=== PATIENT | female | born 1950 | race Caucasian/White ===

== ENCOUNTER → 2018-09-15 | Day surgery (SDC) | payer MEDICARE, OTHER ==
[~2018-09-15] MED LIST: ALEN70TA3 PO; ASPI325T8 PO; ATEN50TA PO; IV RINGERS,LACTATED 1000ML 1,000 ML IV SCH; LISI-338 PO; OMEP20TA8 PO; PROPOFOL 20 ML IV ONE; SIMV40TA3 PO
[2018-09-15 09:03] VITALS: BP 132/62
--- NOTE | 2018-09-15 13:41 | HP ---
ADMIT DATE: 09/15/2018 REFERRING PHYSICIAN: Dr. Quique Caban. HISTORY OF PRESENT ILLNESS: This is a 68-year-old female with past medical history significant for hypercholesterolemia, hypertension, history of colonic polyps, is seen for surveillance colon exam. Bowel habits are regular with only occasional constipation, which is controlled with fiber supplements. There has been no melena and/or hematochezia. Last colonoscopy in 2013 did reveal polyps. Weight and appetite are stable. She is without additional complaints. PAST MEDICAL HISTORY: Hypertension, hyperlipidemia, osteoporosis, gastroesophageal reflux disease, colonic polyps. ALLERGIES: None. MEDICATIONS: Include Fosamax, aspirin, lisinopril, omeprazole and simvastatin. SOCIAL HISTORY: She is a social drinker, nonsmoker. FAMILY HISTORY: Significant for heart attack in her father. PAST SURGICAL HISTORY: Tubal ligation. REVIEW OF SYSTEMS: Per records. PHYSICAL EXAMINATION: GENERAL: A well-nourished, well-developed female who is alert, cooperative, in no acute distress. VITAL SIGNS: Temperature 98.6, pulse 101, respirations 18. HEENT: Reveals normocephalic head. Pupils and extraocular movements are not tested. Sclerae anicteric. NECK: Supple. LUNGS: Clear. CARDIOVASCULAR: Reveals S1, S2 without S3, S4 or appreciable murmur. ABDOMEN: Soft abdomen, normal bowel sounds without appreciable hepatosplenomegaly. EXTREMITIES: Reveal no cyanosis, clubbing or edema. IMPRESSION: Colonic polyps. Surveillance exam is recommended at this time. Risks and benefits of procedure have been discussed with the patient previously including risk of hemorrhage and perforation. She is willing to proceed at this time. SANTI SENA MD DR: ERASMO/sunny JOB#: [id number] / [id number] [facility] RECORDS, MEDICAL
== END ==
LOC: SURG 07:16
PROVIDERS: ATTEND Internal Medicine Gastroenterology
DX: Z12.11 Encounter for screening for malignant neoplasm of colon (principal); K63.89 Other specified diseases of intestine; K64.0 First degree hemorrhoids; I10 Essential (primary) hypertension; E78.5 Hyperlipidemia, unspecified; K21.9 Gastro-esophageal reflux disease without esophagitis; Z86.010 Personal history of colon polyps; Z72.89 Other problems related to lifestyle; Z98.51 Tubal ligation status
CPT/HCPCS: 45378; J2704

== ENCOUNTER 2019-10-14 22:48 | Emergency (ER) | payer MEDICARE, OTHER ==
[~2019-10-14] VITALS: Ht 152.4 cm; Wt 56.8 kg
[~2019-10-14 22:48] MED LIST changes: -IV RINGERS,LACTATED 1000ML 1,000 ML IV SCH; -PROPOFOL 20 ML IV ONE; +SIMV40TA18 PO; -SIMV40TA3 PO
[2019-10-15] MEDS ORDERED: METOCLOPRAMIDE HCL 10 MG/2 ML VIAL. IVP ONE (01:30)
[2019-10-15] MEDS ORDERED: DEXAMETHASONE SOD PHOS 4 MG/ML VIAL IVP ONE (01:30)
[2019-10-15] MEDS ORDERED: diphenhydrAMINE 50 MG/ML VIAL IVP ONE (01:30)
[2019-10-15] MEDS ORDERED: KETOROLAC 15 MG/ML VIAL. IVP ONE (01:30)
[2019-10-15] MEDS ORDERED: IV NORMAL SALINE 1000ML BAG 1,000 ML IV ONE (01:30)
--- NOTE | 2019-10-15 01:36 | RAD ---
Chest, PA and Lateral: Technique: PA and lateral views of the chest were obtained. History: Shortness of breath. Comparison: None. Findings: The heart and pulmonary vasculature appear within normal limits. The lungs are clear. The pleural margins are clear. Impression: No acute chest process is seen. Electronically signed by: Marlon Majano MD (10/15/2019 1:33 AM) [id number]
[2019-10-15 02:22] LABS: BASO # 0.1 x10^3/uL (0.0-0.2); BASO % 1 % (0-3); EOS # 0.1 x10^3/uL (0.0-0.7); EOS % 2 % (0-3); HEMOGLOBIN 13.5 g/dL (12.0-15.5); LYMPH # 3.1 x10^3/uL (1.0-4.8); LYMPH % 43 % (24-48); MEAN CORPUSCULAR HEMOGLOBIN 33 pg (25-35); MEAN CORPUSCULAR HGB CONC 35 g/dL (31-37); MEAN CORPUSCULAR VOLUME 95 fL (79-100); MONO # 0.6 x10^3/uL (0.0-1.1); MONO % 8 % (0-9); NEUT # 3.4 x10^3/uL (1.8-7.7); NEUT % 46 % (31-73); PLATELET COUNT 265 x10^3/uL (140-400); RED BLOOD COUNT 4.13 x10^6/uL (3.50-5.40); RED CELL DISTRIBUTION WIDTH 12.9 % (11.5-14.5); WHITE BLOOD COUNT 7.3 x10^3/uL (4.0-11.0)
--- NOTE | 2019-10-15 02:22 | PHYS DOC ---
Past Medical History Past Medical History: High Cholesterol, Hypertension Past Surgical History: Oophorectomy Smoking Status: Never Smoker Alcohol Use: Occasionally General Adult EDM: Chief Complaint: HEADACHE HPI: HPI: Patient is a 69 year old [f__sex] who presents with [] Review of Systems: Review of Systems: Constitutional: Denies fever or chills. [] Eyes: Denies change in visual acuity. [] HENT: Denies nasal congestion or sore throat. [] Respiratory: Denies cough or shortness of breath. [] Cardiovascular: Denies chest pain or edema. [] GI: Denies abdominal pain, nausea, vomiting, bloody stools or diarrhea. [] : Denies dysuria. [] Musculoskeletal: Denies back pain or joint pain. [] Integument: Denies rash. [] Neurologic: Denies headache, focal weakness or sensory changes. [] Endocrine: Denies polyuria or polydipsia. [] Lymphatic: Denies swollen glands. [] Psychiatric: Denies depression or anxiety. [] Heart Score: Risk Factors: Risk Factors: DM, Current or recent (<one month) smoker, HTN, HLP, family history of CAD, obesity. Risk Scores: Score 0 - 3: 2.5% MACE over next 6 weeks - Discharge Home Score 4 - 6: 20.3% MACE over next 6 weeks - Admit for Clinical Observation Score 7 - 10: 72.7% MACE over next 6 weeks - Early Invasive Strategies Current Medications: Current Medications Medications (Trade) Dose Ordered Sig/Marck Start Time Stop Time Status Last Admin Dose Admin Dexamethasone Sodium Phosphate (Decadron) 10 mg 1X ONCE 10/15/19 01:30 10/15/19 01:31 DC Diphenhydramine HCl (Benadryl) 25 mg 1X ONCE 10/15/19 01:30 10/15/19 01:31 DC Ketorolac Tromethamine (Toradol 15mg Vial) 15 mg 1X ONCE 10/15/19 01:30 10/15/19 01:31 DC Metoclopramide HCl (Reglan Vial) 10 mg 1X ONCE 10/15/19 01:30 10/15/19 01:31 DC Sodium Chloride 1,000 ml @ 1,000 mls/hr 1X ONCE 10/15/19 01:30 10/15/19 02:29 Allergies: Allergies: Allergies Coded Allergies Type Severity Reaction Last Updated Verified No Known Drug Allergies 09/15/18 No Physical Exam: PE: Constitutional: Well developed, well nourished, no acute distress, non-toxic appearance. [] HENT: Normocephalic, atraumatic, bilateral external ears normal, oropharynx moist, no oral exudates, nose normal. [] Eyes: PERRLA, EOMI, conjunctiva normal, no discharge. [] Neck: Normal range of motion, no tenderness, supple, no stridor. [] Cardiovascular:Heart rate regular rhythm, no murmur [] Lungs & Thorax: Bilateral breath sounds clear to auscultation [] Abdomen: Bowel sounds normal, soft, no tenderness, no masses, no pulsatile masses. [] Skin: Warm, dry, no erythema, no rash. [] Back: No tenderness, no CVA tenderness. [] Extremities: No tenderness, no cyanosis, no clubbing, ROM intact, no edema. [] Neurologic: Alert and oriented X 3, normal motor function, normal sensory function, no focal deficits noted. [] Psychologic: Affect normal, judgement normal, mood normal. [] Current Patient Data: Vital Signs: Vital Signs Date Time Temp Pulse Resp B/P (MAP) Pulse Ox O2 Delivery O2 Flow Rate FiO2 10/15/19 00:00 97.7 76 18 157/74 (101) 98 Room Air 97.7 EKG: EKG: @0202 NSR at 69bpm, NO ST elevation, QRS 78ms, QT/QTc 388/417ms Radiology/Procedures: Radiology/Procedures: PROCEDURE: CHEST PA & LATERAL Chest, PA and Lateral: Technique: PA and lateral views of the chest were obtained. History: Shortness of breath. Comparison: None. Findings: The heart and pulmonary vasculature appear within normal limits. The lungs are clear. The pleural margins are clear. Impression: No acute chest process is seen. Electronically signed by: Marlon Majano MD (10/15/2019 1:33 AM) [id number] Course & Med Decision Making: Course & Med Decision Making Pertinent Labs and Imaging studies reviewed. (See chart for details) [] Dragon Disclaimer: Dragon Disclaimer: This electronic medical record was generated, in whole or in part, using a voice recognition dictation system. Departure Departure Impression: Primary Impression: Headache Qualified Codes: R51 - Headache Additional Impressions: Shortness of breath Abdominal pain Qualified Codes: R10.13 - Epigastric pain Disposition: 01 HOME, SELF-CARE Condition: IMPROVED Referrals: SELENA CHO MD (PCP) ISABELLE JACKSON MD, SCOTT S MD ZWIBELMAN, JAY S MD Patient Instructions: Abdominal Pain (Nonspecific), Headache, FAQs, Shortness of Breath, Sxzp-sx-Kbwj Scripts Butalb/Acetaminophen/Caffeine (LVZOAD-YMLIGVTV-XSSN 50-325-40) 1 Each Tablet 1 EACH PO Q6HRS PRN for HEADACHE, #14 TAB Prov: AJIT MEZA DO 10/15/19 Famotidine (PEPCID) 20 Mg Tablet 20 MG PO BID, #20 TAB Prov: AJIT MEZA DO 10/15/19 AJIT MEZA DO Oct 15, 2019 02:22
[2019-10-15 02:31] LABS: CALCIUM 8.6 mg/dL (8.5-10.1); CREATININE 0.7 mg/dL (0.6-1.0); GFR 82.7; POTASSIUM 3.9 mmol/L (3.5-5.1)
[2019-10-15 02:33] LABS: PROTHROMBIN TIME PATIENT 11.6 SEC (11.7-14.0)
[2019-10-15 02:37] LABS: ALBUMIN 3.7 g/dL (3.4-5.0); MAGNESIUM 2.3 mg/dL (1.8-2.4); TOTAL BILIRUBIN 0.5 mg/dL (0.2-1.0); TOTAL PROTEIN 7.4 g/dL (6.4-8.2)
[2019-10-15 04:11] LABS: BILIRUBIN,URINE NEGATIVE (NEG); CLARITY,URINE CLEAR; COLOR,URINE YELLOW; NITRITE,URINE NEGATIVE (NEG); PH,URINE 6.5 (<5.0-8.0); PROTEIN,URINE NEGATIVE (NEG-TRACE); UROBILINOGEN,URINE 0.2 mg/dL (0.2 mg/dL)
[2019-10-15 04:16] LABS: SQUAMOUS EPITHELIAL CELL,UR OCC /LPF
[2019-10-15 04:17] LABS: BACTERIA,URINE 0 /HPF (0-FEW); RBC,URINE 0 /HPF (0-2)
[2019-10-15] MEDS ORDERED: BUTA1TAB23 PO (04:28)
[2019-10-15] MEDS ORDERED: FAMO-63 PO (04:28)
[2019-10-15 05:02] VITALS: BP 137/66
--- NOTE | 2019-10-15 06:18 | EKG ---
[facility] [address] [place] [address] Test Date: 2019-10-15 Test Time: 02:02:48 Pat Name: GUILLERMO BROWNLEE Department: Room: Gender: F [employer] Operator: : 1950 Requested By: AJIT MEZA Order Number: [id number] Reading MD: Measurements Intervals [place] Rate: 69 P: 49 AK: 160 QRS: -21 QRSD: 78 T: 21 QT: 388 QTc: 417 Interpretive Statements SINUS RHYTHM LEFTWARD AXIS OTHERWISE NORMAL ECG RI6.01 No previous ECG available for comparison
== END 2019-10-15 05:02 | disposition home or self-care (01) ==
LOC: ER 22:48
DX: R51 Headache (principal); R06.02 Shortness of breath; R10.13 Epigastric pain; I10 Essential (primary) hypertension; E78.00 Pure hypercholesterolemia, unspecified
CPT/HCPCS: 36415; 71046; 80053; 81001; 82553; 83605; 83690; 83735; 84484; 85025; 85610; 85730; 87086; 93005; 96374; 96375; 99285; J1100; J1200; J1885; J2765; J7030; 96361

== ENCOUNTER → 2019-11-19 | Outpatient (CLI) | payer MEDICARE, OTHER ==
[~2019-11-19] MED LIST changes: +BUTA1TAB23 PO; +FAMO-63 PO; +SINCALIDE 1.14 MCG in IV NORMAL SALINE 50ML 30 ML IV ONE
--- NOTE | 2019-11-19 12:53 | RAD ---
EXAM: Nuclear hepatobiliary scan. HISTORY: Pain. TECHNIQUE: Following intravenous administration of 5.5 mCi Tc 99m Choletec, anterior images of the abdomen were obtained at five minute intervals through one hour. Subsequently, 1.14 mcg Kinevac was administered and additional images to assess gallbladder ejection fraction were obtained. FINDINGS: There is prompt radiotracer uptake by the liver. No focal defect is seen. There is normal excretion into the biliary tree. The gallbladder is visualized within 10 minutes and there is free flow into the duodenum. The gallbladder ejection fraction is 99 percent. IMPRESSION: Elevated gallbladder ejection fraction of 99 percent. This can be seen with biliary hyperkinesia. Electronically signed by: Sharon Jain MD (11/19/2019 12:51 PM) [email or web address]
--- NOTE | 2019-11-19 14:07 | RAD ---
EXAM: Abdomen sonogram. HISTORY: Nausea, epigastric pain. TECHNIQUE: Sonographic imaging of the abdomen was performed. COMPARISON: None. FINDINGS: The liver is normal in size. No focal hepatic lesion is seen. The gallbladder is unremarkable. The common bile duct is normal in caliber. The right kidney, pancreas, and inferior cava are unremarkable. The aorta is not formally assessed. IMPRESSION: Unremarkable abdomen sonogram. Electronically signed by: Sharon Jain MD (11/19/2019 2:04 PM) [email or web address]
== END | disposition home or self-care (01) ==
LOC: US 08:48
PROVIDERS: ATTEND Internal Medicine Gastroenterology
DX: R11.0 Nausea (principal); R10.13 Epigastric pain
CPT/HCPCS: 76705; 78227; A9537; J2805

== ENCOUNTER → 2019-11-27 | Outpatient (CLI) | payer MEDICARE, OTHER ==
[~2019-11-27] MED LIST changes: +MULT-735 PO; -SINCALIDE 1.14 MCG in IV NORMAL SALINE 50ML 30 ML IV ONE
== END | disposition home or self-care (01) ==
LOC: LAB 14:03
PROVIDERS: ATTEND Internal Medicine Cardiovascular Disease
DX: Z11.59 Encounter for screening for other viral diseases (principal); Z45.09 Encounter for adjustment and management of other cardiac device
CPT/HCPCS: U0003-CS

== ENCOUNTER 2019-11-30 08:25 | Outpatient (CLI) | payer MEDICARE, OTHER ==
[~2019-11-30] VITALS: Ht 152.4 cm; Wt 56.7 kg
[2019-11-30] VITALS (7 sets, daily range): BP systolic 118–145; BP diastolic 58–75
[~2019-11-30 08:25] MED LIST changes: -MULT-735 PO
[2019-11-30] MEDS ORDERED: LIDOCAINE 2%/EPI 1:100,000 20 ML VIAL. ONE (09:14)
[2019-11-30] MEDS ORDERED: MULT-735 PO (09:20)
[2019-11-30] MEDS ORDERED: MIDAZOLAM HCL/PF 2 MG/2 ML VIAL. ONE (10:30)
[2019-11-30] MEDS ORDERED: fentaNYL PF VIAL 100 MCG/2 ML VIAL ONE (10:30)
--- NOTE | 2019-11-30 10:38 | PDOC ---
MODERATE SEDATION ASSESSMENT RISKS/ALTERNATIVES Risks/Alternatives Risks and alternatives of this type of sedation and procedure discussed with: RISK/ALTERNATIVES: Patient H & P ON CHART H & P H & P on chart and reviewed for co-morbid conditions and appropriate labs. H&P ON CHART: Yes STATUS PREG STATUS ASSESSED: N/A MEDS/ALLERGIES REVIEWED Meds/Allergies Reviewed Medications and Allergies including time and route of recently administered narcotics and sedatives. MEDS/ALLERGIES REVIEWED: Yes ASA RATING ASA RATING: II AIRWAY ASSESSMENT Airway Assessment Airway patency, oral function limitations, presence of caps, crowns, dentures, partials, and ability to extend neck assessed. AIRWAY ASSESSMENT: Yes MALLAMPATI SCORE MALLAMPATI SCORE: II PRE-SEDATION ASSESSMENT PRE-SEDATION ASSESSMENT: Yes YANG MURILLO MD Nov 30, 2019 10:38
[2019-11-30] MEDS ORDERED: LIDOCAINE 2%/EPI 1:100,000 20 ML VIAL. IJ ONE (10:45)
[2019-11-30] MEDS ORDERED: MIDAZOLAM HCL/PF 2 MG/2 ML VIAL. IV ONE (10:45)
[2019-11-30] MEDS ORDERED: fentaNYL PF VIAL 100 MCG/2 ML VIAL IV ONE (10:45)
--- NOTE | 2019-11-30 11:07 | CARD ---
MR#: [id number] Date of Study: 11/30/2019 Ordering Physician: YANG SEARS, Referring Physician: YANG SEARS, Tech: APPROVED REPORT EXAM Biotronik loop recorder explantation MODERATE SEDATION TIME: 24 MINUTES FLUORO TIME: 2.6 MIN DOSE: 1.3 GYCM2 INDICATIONS Syncope of uncertain etiology s/p loop recorder implantation with end of monitoring period. EXPLANTED DEVICES After explaining the risks, benefits and alternative options, informed consent was obtained from myrna ent. Patient was brought to the cardiac Test Equipment Mechanic and her left chest and shoulder were prepped and dr aped in the usual fashion. An incision was made over the previously implanted loop recorder and usin g blunt dissection the Biotronik biomonitor loop recorder was exposed and removed from the pocket. T he incision was closed in 2 layers and Steri-Strips. Patient tolerated the procedure well. Hemostas is was secured. There were no immediate complications. CONCLUSION Successful explantation of Biotronik biomonitor loop recorder Signed by : Yang Sears, Electronically Approved : 11/30/2019 11:07:03
--- NOTE | 2019-11-30 11:09 | CARD ---
MR#: [id number] Date of Study: 11/30/2019 Ordering Physician: YANG SAERS, Referring Physician: YANG SEARS, Tech: Marybeth Castellanos APPROVED REPORT EXAM: Two-dimensional and M-mode echocardiogram with Doppler and color Doppler. Other Information Quality : AverageHR: 67bpm INDICATION Syncope 2D DIMENSIONS RVDd2.6 (2.9-3.5cm)Left Atrium(2D)2.9 (1.6-4.0cm) IVSd0.9 (0.7-1.1cm)Aortic Root(2D)2.8 (2.0-3.7cm) LVDd4.7 (3.9-5.9cm)LVOT Diameter1.9 (1.8-2.4cm) PWd0.9 (0.7-1.1cm)LVDs3.2 (2.5-4.0cm) FS (%) 31.2 %SV59.5 ml LVEF(%)59.0 (>50%) Aortic Valve AoV Peak Byron.109.1cm/sAoV VTI24.9cm AO Peak GR.4.8mmHgLVOT Peak Byron.86.5cm/s LVOT VTI 19.92cmAO Mean GR.3mmHg ADRIÁN (VMAX)1.71ds6RSK (VTI)2.29cm2 AI P 1/2 Orns363gr Mitral Valve MV E Qivrmcsy60.0cm/sMV DECEL GERE335as MV A Hyubghfr82.1cm/sMV E Mean Gr.1mmHg MV EJA32tlB/A Ratio0.9 MVA (PHT)3.16cm2 TDI E/Lateral E'6.7E/Medial E'9.8 Pulmonary Valve PV Peak Jcoyekxy28.1cm/sPV Peak Grad.2mmHg Tricuspid Valve TR P. Kukyrqfa950gf/sRAP ROVSPLGQ7jrMl TR Peak Gr.64qkPtZKBW86ufHl Pulmonary Vein S1 Dmrszybv01.5cm/sD2 Fvctpycw00.1cm/s PVa lplmrjgb834kfhh LEFT VENTRICLE The left ventricle is normal size. There is normal left ventricular wall thickness. The left ventricu lar systolic function is normal. The Ejection Fraction is 55-60%. There is normal LV segmental wall m otion. Transmitral Doppler flow pattern is Grade I-abnormal relaxation pattern. RIGHT VENTRICLE The right ventricle is normal size. There is normal right ventricular wall thickness. The right ventr icular systolic function is normal. ATRIA The left atrium size is normal. The right atrium size is normal. The interatrial septum is intact wit h no evidence for an atrial septal defect or patent foramen ovale as noted on 2-D or Doppler imaging. AORTIC VALVE The aortic valve is calcified but opens well. Doppler and Color Flow revealed trace aortic regurgitat ion. Calculated aortic valve area is 2.14 cm2 with maximum pressure gradient of 6 mmHg and mean press ure gradient of 3 mmHg. There is no significant aortic valvular stenosis. MITRAL VALVE The mitral valve is normal in structure and function. There is no evidence of mitral valve prolapse. There is no mitral valve stenosis. Doppler and Color-flow revealed trace mitral regurgitation. TRICUSPID VALVE The tricuspid valve is normal in structure and function. Doppler and Color Flow revealed trace tricus pid regurgitation with an estimated PAP of 25 mmHg. There is no tricuspid valve stenosis. GREAT VESSELS The aortic root is normal in size. The ascending aorta is borderline dilated. The IVC is normal in si ze and collapses >50% with inspiration. PERICARDIAL EFFUSION There is no evidence of significant pericardial effusion. Critical Notification Critical Value: No <Conclusion> The left ventricular systolic function is normal. The Ejection Fraction is 55-60%. There is normal LV segmental wall motion. Transmitral Doppler flow pattern is Grade I-abnormal relaxation pattern. Trace mitral regurgitation. Trace tricuspid regurgitation with an estimated PAP of 25 mmHg. There is no evidence of significant pericardial effusion. Signed by : Yang Sears, Electronically Approved : 11/30/2019 11:09:06
--- NOTE | 2019-11-30 12:40 | NUR ---
Discharge Note: GUILLERMO BROWNLEE Discharge instructions and discharge home medications reviewed with Patient and ; and a copy given. All questions have been answered and understanding verbalized. The following instructions and handouts were given: Incision care and post moderate sedation. Discontinued lines and drains: Right wrist IV dc'd and tip intact. Patient discharged to home with via personal vehicle.
== END 2019-11-30 12:30 | disposition home or self-care (01) ==
LOC: ECHO 08:25
PROVIDERS: ATTEND Internal Medicine Cardiovascular Disease
DX: Z45.09 Encounter for adjustment and management of other cardiac device (principal); R55 Syncope and collapse; I08.3 Combined rheumatic disorders of mitral, aortic and tricuspid valves; I77.819 Aortic ectasia, unspecified site; I10 Essential (primary) hypertension; E78.5 Hyperlipidemia, unspecified; M81.0 Age-related osteoporosis without current pathological fracture; F41.9 Anxiety disorder, unspecified; E78.00 Pure hypercholesterolemia, unspecified; Z79.899 Other long term (current) drug therapy; Z90.721 Acquired absence of ovaries, unilateral; Z82.49 Family history of ischemic heart disease and other diseases of the circulatory system; Z80.0 Family history of malignant neoplasm of digestive organs; Z80.51 Family history of malignant neoplasm of kidney; Z79.82 Long term (current) use of aspirin; Z98.51 Tubal ligation status; Z98.42 Cataract extraction status, left eye; Z98.41 Cataract extraction status, right eye; Z87.81 Personal history of (healed) traumatic fracture
CPT/HCPCS: 33286; 93306; 99152; 99153; J2250; J3010; J3490

== ENCOUNTER → 2019-12-27 | Outpatient (CLI) | payer MEDICARE, OTHER ==
[2019-11-30 12:15] VITALS: BP 136/73
[~2019-12-27] MED LIST changes: +LISI-334 PO; +MULT-735 PO; +OXYC-325 PO; +OXYC1TAB15 PO
[2019-12-27 13:50] LABS: BASO # 0.1 x10^3/uL (0.0-0.2); BASO % 1 % (0-3); EOS # 0.3 x10^3/uL (0.0-0.7); EOS % 4 % (0-3); HEMOGLOBIN 14.4 g/dL (12.0-15.5); LYMPH # 3.1 x10^3/uL (1.0-4.8); LYMPH % 42 % (24-48); MEAN CORPUSCULAR HEMOGLOBIN 34 pg (25-35); MEAN CORPUSCULAR HGB CONC 35 g/dL (31-37); MEAN CORPUSCULAR VOLUME 95 fL (79-100); MONO # 0.4 x10^3/uL (0.0-1.1); MONO % 6 % (0-9); NEUT # 3.5 x10^3/uL (1.8-7.7); NEUT % 47 % (31-73); PLATELET COUNT 277 x10^3/uL (140-400); RED BLOOD COUNT 4.31 x10^6/uL (3.50-5.40); WHITE BLOOD COUNT 7.4 x10^3/uL (4.0-11.0)
[2019-12-27 14:03] LABS: ALBUMIN 3.8 g/dL (3.4-5.0); CALCIUM 9.4 mg/dL (8.5-10.1); CREATININE 0.6 mg/dL (0.6-1.0); GFR 98.8; POTASSIUM 3.8 mmol/L (3.5-5.1); TOTAL BILIRUBIN 0.6 mg/dL (0.2-1.0); TOTAL PROTEIN 7.8 g/dL (6.4-8.2)
== END ==
LOC: SURGPAT 12:57
PROVIDERS: ATTEND Surgery
DX: Z01.812 Encounter for preprocedural laboratory examination (principal); K82.8 Other specified diseases of gallbladder; Z20.828 Contact with and (suspected) exposure to other viral communicable diseases
CPT/HCPCS: 80053; 85025; U0003

== ENCOUNTER 2020-01-03 08:24 | Day surgery (SDC) | payer MEDICARE, OTHER ==
[~2020-01-03] VITALS: Ht 154.9 cm; Wt 56.5 kg
[~2020-01-03 08:24] MED LIST changes: +ACETAMINOPHEN 500 MG TABLET PO PRN; +HYDROmorphone 2 MG/ML VIAL IV PRN; +MORPHINE SULFATE 2 MG/ML VIAL. IV PRN; +ONDANSETRON PF 4 MG/2 ML VIAL. IV PRN; -OXYC-325 PO; -OXYC1TAB15 PO; +PROCHLORPERAZINE 10 MG/2 ML VIAL. IV PRN; +ceFAZolin SODIUM IV Push 1 GM VIAL. IVP PRN; +fentaNYL PF VIAL 100 MCG/2 ML VIAL IV PRN
[2020-01-03] MEDS ORDERED: fentaNYL PF VIAL 100 MCG/2 ML VIAL ONE (08:55)
[2020-01-03] MEDS ORDERED: LIDOCAINE 2% PF 5 ML VIAL. ONE (08:55)
[2020-01-03] MEDS ORDERED: ROCURONIUM 50 MG/5 ML VIAL. ONE (08:55)
[2020-01-03] MEDS ORDERED: PROPOFOL 10 MG/ML (20ML) VIAL. IV ONE (08:55)
[2020-01-03] MEDS: IV RINGERS,LACTATED 1000ML 1,000 ML IV SCH ×2 (08:55→11:46)
[2020-01-03] MEDS ORDERED: SURGICEL HEMOSTAT 4X8 EACH. ONE (09:01)
[2020-01-03] MEDS ORDERED: BUPIVACAINE-EPI 0.5%-1:200000 MPF 30 ML VIAL. ONE (09:01)
[2020-01-03] MEDS ORDERED: ONDANSETRON PF 4 MG/2 ML VIAL. ONE (10:20)
[2020-01-03] MEDS ORDERED: NEOSTIGMINE METHYLSULFATE 5 MG/5 ML SYRINGE. ONE (10:20)
[2020-01-03] MEDS ORDERED: DEXAMETHASONE SOD PHOS 20 MG/5 ML VIAL. ONE (10:20)
[2020-01-03] MEDS ORDERED: GLYCOPYRROLATE 1 MG/5 ML VIAL. ONE (10:20)
--- NOTE | 2020-01-03 10:37 | PDOC4 ---
Operative Note Operative Note Date: 01/03/2020 at 1034 Preoperative diagnosis: Biliary dyskinesia Postoperative diagnosis: Same Procedure: Laparoscopic cholecystectomy Surgeon: Reynaldo Specimen: Gallbladder Dictation: Patient is a 69-year-old female whose had right upper quadrant abdominal pain multiple studies done ultrasound which was negative but a HIDA scan which showed ejection fraction over 99% with recurrence of her symptoms. Procedure of laparoscopic cholecystectomy was explained to the patient detail risk-benefit were also discussed including bleeding infection injury to intra- abdominal contents possibly necessitating further or open operations alternatives to this procedure also discussed with the patient who seemed to understand and gave both verbal and written consent to have the procedure performed. Patient was taken to the operating room placed in the supine position general anesthesia was initiated once patient was sleeping intubated her abdomen was prepped and draped usual sterile fashion with ChloraPrep. Area below the umbilicus was injected with quarter percent Marcaine with epinephrine incision was made 11 blade scalpel and a varies needle was placed within the abdomen creating pneumoperitoneum once this was complete the millimeter port was placed and a 5 mm camera's placed within the abdomen which was inspected no other red maladies were noted a 5 mm port was placed in the epigastrium a 5 mm port was placed in the right midabdomen and a 5 mm port was placed in the right lateral abdomen. The dome of the gallbladder is grasped retracted cephalad the infundibulum the gallbladder is grasped tract and laterally exposing the triangle adherent tissues the triangle were taken down exposing the cystic duct and cystic artery both were doubly clipped and transected the gallbladder is taken off the liver with hook electrocautery placed in Endo Catch bag and removed and the umbilicus the right upper quadrant is irrigated and suctioned dry hemostasis deemed appropriate and the pneumoperitoneum was reduced all ports were removed the fascial defect at the umbilicus was closed with a eatkty-oe-wgdtb 0 Vicryl suture and the skin was reapproximated all port sites for subcuticular Monocryl Mastisol Steri-Strips and island dressings were applied. Patient was awakened and extubated in the operating room taken to recovery in stable condition all sponge instrument needle counts listed as correct estimated blood loss 10 mL. CARLA QUEVEDO MD Jan 03, 2020 10:37
--- NOTE | 2020-01-03 10:39 | DISCH ---
DISCHARGE INSTRUCTIONS Condition on Discharge Condition on Discharge: Stable Activity After Discharge Activity Instructions for Disc: Avoid exertion Other activity instructions: No lifting more than 20 pounds for 2 weeks Diet after Discharge Diet after Discharge: Low Fat Liquid Texture: Thin Liquid Wound Incision Care Other wound/incision instructi: Yohana shower in 24 hours Contacting the [facility] after DC Call your doctor for: If your condition worsens Follow-Up Follow up with: Follow-up Dr. Quevedo in 2 weeks Treatment/Equipment after DC Adaptive Equipment Issued: None CARLA QUEVEDO MD Jan 03, 2020 10:39
[2020-01-03] MEDS: fentaNYL PF VIAL 100 MCG/2 ML VIAL IV PRN ×2 (10:59→11:23)
[2020-01-03] MEDS ORDERED: OXYC-325 PO (11:29)
[2020-01-03] MEDS ORDERED: OXYC1TAB15 PO (11:30)
[2020-01-03] MEDS ORDERED: oxyCODONE/APAP 5/325 1 TAB TABLET PO ONE (12:00)
[2020-01-03 12:50] VITALS: BP 115/69
--- NOTE | 2020-01-07 14:07 | PATHOLOGY ---
[facility] Accession Number: [id number] . 01 Material submitted: . gallbladder - GALLBLADDER AND CONTENTS . 01 Clinical history: . BILIARY DYSKINESIA . 02 Diagnosis: Gallbladder, cholecystectomy: - Chronic cholecystitis. ([facility] 01/07/2020) [facility] 01/07/2020 0855 Local . 02 Comment: There are no calculi identified within the gallbladder lumen or specimen container. There is no evidence of malignancy. ([facility] 01/07/2020) . 02 Electronically signed: . Michael Thurman MD, Pathologist NPI- [id number] . 01 Gross description: . The specimen is received in formalin, labeled "Pretty Boss[place], gallbladder and contents". Received is an intact gallbladder measuring 6.9 x 2.7 x 2.1 cm in greatest dimensions displaying a blue-morejon serosal surface. Opening the specimen reveals a velvety, bile-stained mucosa with a gallbladder wall thickness of 0.1 cm. Calculi are not present, and no masses or lesions are noted grossly. Helicopter Pilot sections, to include the proximal margin, are submitted in cassette A1. ([facility]; 01/04/2020) [facility] 01/04/2020 1619 Local . 02 Pathologist provided ICD-10: K81.1 . 02 CPT . 815558 Specimen Comment: A courtesy copy of this report has been sent to [phone], [phone] Specimen Comment: [id number] Specimen Comment: Report sent to / DR CHO Performed at: 01 [facility] [address], [place], [place] [id number] MD Ulises High MD Phone: [phone] Performed at: 02 [facility] [address] [place], [place] [id number] MD Michael Thurman MD Phone: [phone]
== END 2020-01-03 13:25 | disposition home or self-care (01) ==
LOC: SURG 08:24
PROVIDERS: ATTEND Surgery
DX: K82.8 Other specified diseases of gallbladder (principal); K81.1 Chronic cholecystitis; I10 Essential (primary) hypertension; E78.5 Hyperlipidemia, unspecified; E78.00 Pure hypercholesterolemia, unspecified; F41.9 Anxiety disorder, unspecified; Z79.82 Long term (current) use of aspirin; Z79.899 Other long term (current) drug therapy; Z83.3 Family history of diabetes mellitus
CPT/HCPCS: 47562; A7015; J0690; J0780; J1100; J2405; J2704; J2710; J3010; J3490; J7030

== ENCOUNTER → 2020-04-14 | Outpatient (CLI) | payer MEDICARE, OTHER ==
[~2020-04-14] MED LIST changes: -ACETAMINOPHEN 500 MG TABLET PO PRN; -HYDROmorphone 2 MG/ML VIAL IV PRN; -MORPHINE SULFATE 2 MG/ML VIAL. IV PRN; -ONDANSETRON PF 4 MG/2 ML VIAL. IV PRN; +OXYC-325 PO; +OXYC1TAB15 PO; -PROCHLORPERAZINE 10 MG/2 ML VIAL. IV PRN; -ceFAZolin SODIUM IV Push 1 GM VIAL. IVP PRN; -fentaNYL PF VIAL 100 MCG/2 ML VIAL IV PRN
--- NOTE | 2020-04-14 14:17 | RAD ---
Gastric Emptying Study Indication: Abdominal pain, bloating. Procedure: Anterior and posterior projection static images are obtained over the stomach following or al administration of 2 mCi of 99 M technetium sulfur colloid in a solid meal (egg and toast). Time po ints include an immediate baseline, and 1, 2, 3, and 4 hours post ingestion. Findings: There is progressive emptying of the stomach on sequential images. Percentage retention at one hour is 62% (normal 34.8-91%). Two hours 34% (normal 2.7-60%). Three hours 4% (normal 0.5-28%). Four hours 0% (normal 0-10%). The calculated T1/2 of emptying is 86 minutes. 45-90 minutes is considered normal. IMPRESSION: Normal 4 hour protocol gastric emptying study. Electronically signed by: Tate Rodriguez MD (04/14/2020 2:15 PM) [id number]
== END ==
LOC: NM 08:15
PROVIDERS: ATTEND Internal Medicine Gastroenterology
DX: R14.0 Abdominal distension (gaseous) (principal); R10.9 Unspecified abdominal pain
CPT/HCPCS: 78264; A9541

== ENCOUNTER → 2020-04-17 | Outpatient (CLI) | payer MEDICARE, OTHER ==
--- NOTE | 2020-04-17 10:26 | KCIC ---
EXAMINATION: Magnetic resonance imaging (MRI) of the brain and brainstem without contrast 04/17/2020 8:45 AM HISTORY: Frequent headaches TECHNIQUE: Multiplanar multi-weighted MRI of the brain and brainstem was performed without intravenou s contrast using the general brain protocol. COMPARISON: None available. FINDINGS: The scalp and calvarium are normal. The superior sagittal sinus demonstrates normal venous flow. The corpus callosum is normal in shape and signal intensity. The posterior fossa is unremarkable. The p ituitary and sella are normal. The brainstem and craniocervical junction are unremarkable. There are T2/FLAIR signal hyperintense foci in the periventricular and subcortical white matter with areas of confluence most suggestive of moderate chronic small vessel ischemic changes. Diffusion weighted images reveal no hyperintensities to suggest acute cerebral infarction. Focus of s usceptibility artifact is identified within the left insula which may represent an area of microhemor rhage or tiny cavernoma. Senescent calcifications are identified within the basal ganglia bilaterally . The ventricles are normal in size and position without evidence of hydrocephalus. The paranasal sinuses are normal. The visualized portions of the mastoids are unremarkable. The orbi ts appear normal with exception of bilateral lens replacement. Normal flow voids are demonstrated in the carotid arteries and basilar artery. IMPRESSION: 1. No evidence for acute or subacute ischemia. 2. There are T2/FLAIR signal hyperintense foci in the periventricular and subcortical white matter wi th areas of confluence most suggestive of moderate chronic small vessel ischemic changes. 3. Focus of susceptibility artifact is identified within the left insula which may represent an area of microhemorrhage or tiny cavernoma. Electronically signed by: Amina Mederos MD (04/17/2020 10:23 AM) AUBREY
== END ==
LOC: KCIC MRI 08:24
PROVIDERS: ATTEND Nurse Practitioner Family
DX: G23.8 Other specified degenerative diseases of basal ganglia (principal); R51.9 Headache, unspecified
CPT/HCPCS: 70551

== ENCOUNTER → 2020-06-20 | Outpatient (CLI) | payer MEDICARE, OTHER ==
[~2020-06-20] MED LIST changes: -LISI-334 PO; -LISI-338 PO; +LISI-517 PO; +LISI20TA18 PO
--- NOTE | 2020-06-20 12:01 | CARD ---
MR#: [id number] Date of Study: 06/20/2020 Ordering Physician: YANG MURILLO, Referring Physician: YANG MURILLO, Tech: Marybeth Castellanos, [facility] APPROVED REPORT EXAM: Two-dimensional and M-mode echocardiogram with Doppler and color Doppler. Other Information Quality : AverageHR: 69bpm INDICATION Murmur RISK FACTORS Hypertension Hyperlipidemia 2D DIMENSIONS RVDd3.0 (2.9-3.5cm)Left Atrium(2D)2.8 (1.6-4.0cm) IVSd0.9 (0.7-1.1cm)Aortic Root(2D)2.8 (2.0-3.7cm) LVDd4.3 (3.9-5.9cm)LVOT Diameter2.0 (1.8-2.4cm) PWd0.9 (0.7-1.1cm)LVDs2.6 (2.5-4.0cm) FS (%) 40.1 %SV59.8 ml LVEF(%)71.0 (>50%) Aortic Valve AoV Peak Byron.101.7cm/sAoV VTI21.3cm AO Peak GR.4.1mmHgLVOT Peak Byron.84.1cm/s LVOT VTI 17.25cmAO Mean GR.2mmHg AI P 1/2 [id number] Mitral Valve MV E Uxygpkrt20.4cm/sMV DECEL [id number] MV A Ncdysnpl36.1cm/sMV FGK43nk E/A Ratio0.7MVA (PHT)3.13cm2 TDI E/Lateral E'7.8E/Medial E'9.7 Pulmonary Valve PV Peak Pnkrjesb50.2cm/sPV Peak Grad.2mmHg Tricuspid Valve TR P. Yuitontk209xa/sRAP [id number] TR Peak Gr.67xpTkPYXF09zdYp Pulmonary Vein S1 Jdwuobkh36.6cm/sD2 Dwlfivaf72.4cm/s PVa tubnnxai150vjtc LEFT VENTRICLE The left ventricle is normal size. There is normal left ventricular wall thickness. The left ventricu lar systolic function is normal and the ejection fraction is within normal range. The Ejection Fracti on is 50-55%. There is normal LV segmental wall motion. Transmitral Doppler flow pattern is Grade I-a bnormal relaxation pattern. RIGHT VENTRICLE The right ventricle is normal size. There is normal right ventricular wall thickness. The right ventr icular systolic function is normal. ATRIA The left atrium size is normal. The right atrium size is normal. The interatrial septum is intact wit h no evidence for an atrial septal defect or patent foramen ovale as noted on 2-D or Doppler imaging. AORTIC VALVE The aortic valve is calcified but opens well. Doppler and Color Flow revealed trace to mild aortic re gurgitation. Calculated aortic valve area is 2.03 cm2 with maximum pressure gradient of 6 mmHg and me an pressure gradient of 3 mmHg. MITRAL VALVE The mitral valve is normal in structure and function. There is no evidence of mitral valve prolapse. There is no mitral valve stenosis. Doppler and Color-flow revealed trace mitral regurgitation. TRICUSPID VALVE The tricuspid valve is normal in structure and function. Doppler and Color Flow revealed trace tricus pid regurgitation with an estimated PAP of 26 mmHg. There is no tricuspid valve stenosis. PULMONIC VALVE The pulmonic valve is not well visualized. Doppler and Color Flow revealed no pulmonic valvular regur gitation. There is no pulmonic valvular stenosis. GREAT VESSELS The aortic root is normal in size. The ascending aorta is Mildly dilated measuring 3.47 cm. The IVC i s normal in size and collapses >50% with inspiration. PERICARDIAL EFFUSION There is no evidence of significant pericardial effusion. Critical Notification Critical Value: No <Conclusion> The left ventricular systolic function is normal and the ejection fraction is within normal range. Th e Ejection Fraction is 50-55%. There is normal LV segmental wall motion. The ascending aorta is mildly dilated measuring 3.5cm. Signed by : Nathan Martinez, Electronically Approved : 06/20/2020 12:01:22
--- NOTE | 2020-06-20 14:37 | RAD ---
MR#: [id number] Date of Study: 06/20/2020 Ordering Physician: JENIFER BOGGS, Referring Physician: VÍCTOR LOVE Tech: MARQUIS Arreaga, ARRT (R) (N) APPROVED REPORT Test Type: Exercise Stress Nurse/Tech: Tonny Tolbert RN Test Indications: Chest Pain, Dyspnea Cardiac History: HTN, See EMR. Medications: ASA 81mg, See EMR. Medical History: See EMR. Resting ECG: SR Resting Heart Rate: 66 bpm Resting Blood Pressure: 150/66mmHg Pretest Chest Pain: No chest pain Nurse/Tech Notes Lungs CTA, Heart tones regular. Consent: The procedure was explained to the patient in lay terms. Informed consent was witnessed. Navjot eout was entered into [employer]. History and Stress Test performed by RT Karena (R) (N) Stress Symptoms Dyspnea POST EXERCISE Reason for Termination: Reached target heart rate Target HR: Yes Max HR: 130 bpm 103% of Maximum Predicted HR: 126 bpm Exercise duration: 6:07 min:sec, 3 Stage Exercise capacity: 10.0METs Max Blood Pressure: 162/78mmHg Blood Pressure response to exercise: Normal blood pressure response during stress. Heart Rate response to exercise: WNL Chest Pain: No. Arrhythmia: No. ST Change: No. No changes from baseline EKG. INTERPRETATION Stress EKG Conclusion: Baseline EKG showed sinus rhythm. No ischemic changes at peak stress. No arr hythmias. Imaging Protocol IMAGE PROTOCOL: Rest Tc-99m/stress Tc-99m 1 day Rest: Stress: Viability: Radiopharm.Tc99m UvktsvhgdRi11t Sestamibi Dose10.4mCi 31.8mCi Img Date 06/20/2020 06/20/2020 Inj-Img Mpmr98zom. 60min. Rest Admin Site:IV - Left AntecubitalAdministrator:MARQUIS Arreaga, ARRT (R)(N) Stress Admin Site: IV - Left AntecubitalAdministrator: RT Norma Thurston)(N) STRESS DATA End Diast. Vol.50.0mlAv. Heart Rate78.0bpm End Syst. Vol.2.0mlCO Index BSA0.0L/min Myocardial Mass94.0gEject. Rtiajjos12.0% Stress Rates Pk. Fill Rate2.68EDV/secLVtime Pk. Fill 202.00msec Pk. Empty Rate3.74ESV/secLVtime Pk. Eject99.40msec 1/3 Pk. Fill1.45EDV/sec Stress Scores Regional WT0.00Summed WT0.00 Regional WM0.00Summed WM1.00 Study quality was good. Left Ventricular size was Normal at Rest and Stress. Lung uptake was . Left Ventricular ejection fraction is >80%. The rest and stress images show normal perfusion, normal contraction and thickening. LV Perf. Quant 17 Seg. SSS0.00 17 Seg. SRS0.00 17 Seg. SDS0.00 Stress Defect Extent (% LAD)0.00Rest Defect Extent (% LAD)0.00Rev. Defect Extent (% LAD)0.00 Stress Defect Extent (% LCX) 0.00Rest Defect Extent (% LCX)0.00Rev. Defect Extent (% LCX)0.00 Stress Defect Extent (% RCA)0.00Rest Defect Extent (% RCA)0.00Rev. Defect Extent (% RCA)0.00 Stress Defect Extent (% NHAN)0.00Rest Defect Extent (% NHAN)0.00Rev. Defect Extent (% NHAN)0.00 Conclusion 1. Treadmill exercise cardioisotope stress test did not show any evidence of ischemia or infarct. 2. Normal left ventricular systolic function with ejection fraction calculated at >80%. 3. Low risk for cardiac events. Signed by : Samson Sears, Electronically Approved : 06/20/2020 14:37:22
== END ==
LOC: NM 09:34
PROVIDERS: ATTEND Internal Medicine Cardiovascular Disease
DX: I35.1 Nonrheumatic aortic (valve) insufficiency (principal); I10 Essential (primary) hypertension
CPT/HCPCS: 78452; 93017; 93306; A9500